=== PATIENT | female | born 1985 | race Asian ===

== ENCOUNTER 2016-08-31 10:58 | Emergency (ER) | payer SELFPAY ==
[~2016-08-31] VITALS: Ht 165.1 cm; Wt 99.8 kg
[2016-08-31 11:25] VITALS: BP 153/82
--- NOTE | 2016-08-31 12:03 | RAD ---
Indication: Cough. Time of exam 11:51 AM No prior studies are available for comparison. FINDINGS: The heart size is normal. The lungs are clear. No pleural effusion or pneumothorax is identified. The pulmonary vascularity is normal. IMPRESSION: No acute abnormality detected.
[2016-08-31] MEDS ORDERED: SUMAtriptan SUCCINATE 25 MG TABLET PO ONE (12:15)
[2016-08-31 12:48] LABS: BILIRUBIN,URINE NEGATIVE (NEG); GLUCOSE,URINE NEGATIVE (NEG); NITRITE,URINE NEGATIVE (NEG); PROTEIN,URINE NEGATIVE (NEG-TRACE); UROBILINOGEN,URINE 0.2 mg/dL (0.2 mg/dL)
[2016-08-31 12:57] LABS: BACTERIA,URINE 0 /HPF (0-FEW); SQUAMOUS EPITHELIAL CELL,UR MOD /LPF; WBC,URINE 0 /HPF (0-4)
[2016-08-31] MEDS ORDERED: PROAIR RESPICL90 MCG IH (13:33)
[2016-08-31] MEDS ORDERED: BENZ100C PO (13:33)
[2016-08-31] MEDS ORDERED: SUMA50TA3 PO (13:33)
[2016-08-31] MEDS ORDERED: CYCL10TA2 PO (13:33)
[2016-08-31] MEDS ORDERED: PRED50TA PO (13:33)
[2016-08-31] MEDS ORDERED: NAPR500T8 PO (13:33)
--- NOTE | 2016-08-31 13:33 | PHYS DOC ---
Past Medical History Past Medical History: Hypertension Past Surgical History: No Surgical History Alcohol Use: None Drug Use: None Adult General Chief Complaint Chief Complaint: COUGH HPI HPI Patient is a 30 year old female with history of hypertension who presents today with a productive cough for 2 weeks. Patient denies any fever. Patient is also complaining of intermittent low back pain and mild frontal headache that began yesterday. Patient denies this being the worst headache in her life. Denies any trauma. Denies any urgency frequency or dysuria. Denies any chance she is . Denies any pain radiating to bilateral lower extremities or loss of bowel bladder function. Review of Systems Review of Systems Constitutional: Denies fever or chills [] Eyes: Denies change in visual acuity, redness, or eye pain [] HENT: Denies nasal congestion or sore throat [] Respiratory: cough Cardiovascular: No additional information not addressed in HPI [] GI: Denies abdominal pain, nausea, vomiting, bloody stools or diarrhea [] : See history of present illness Musculoskeletal: back pain Integument: Denies rash or skin lesions [] Neurologic: headache, Endocrine: Denies polyuria or polydipsia [] Current Medications Current Medications Current Medications Medications (Trade) Dose Ordered Sig/Biran Start Time Stop Time Status Last Admin Dose Admin Sumatriptan Succinate (Imitrex) 25 mg 1X ONCE 08/31/16 12:15 08/31/16 12:16 DC 08/31/16 12:12 25 MG Allergies Allergies Allergies Coded Allergies Type Severity Reaction Last Updated Verified No Known Drug Allergies 11/03/15 No Physical Exam Physical Exam Constitutional: Well developed, well nourished, no acute distress, non-toxic appearance. [] HENT: Normocephalic, atraumatic, bilateral external ears normal, oropharynx moist, no oral exudates, nose normal. [] Eyes: PERRLA, EOMI, conjunctiva normal, no discharge. [] Neck: Normal range of motion, no tenderness, supple, no stridor. [] Cardiovascular:Heart rate regular rhythm, no murmur [] Lungs & Thorax: Bilateral breath sounds clear to auscultation [] Abdomen: Bowel sounds normal, soft, no tenderness, no masses, no pulsatile masses. [] Skin: Warm, dry, no erythema, no rash. [] Back: No tenderness, no CVA tenderness. [] Extremities: No tenderness, no cyanosis, no clubbing, ROM intact, no edema. [] Neurologic: Alert and oriented X 3, normal motor function, normal sensory function, no focal deficits noted. [] Psychologic: Affect normal, judgement normal, mood normal. [] Current Patient Data Vital Signs Vital Signs Date Time Temp Pulse Resp B/P (MAP) Pulse Ox O2 Delivery O2 Flow Rate FiO2 08/31/16 11:25 97.7 67 20 97 Room Air 97.7 Lab Values Laboratory Tests Test 08/31/16 11:18 08/31/16 11:45 POC Urine HCG, Qualitative Hcg negative (Negative) Urine Collection Type Unknown Urine Color Yellow Urine Clarity Clear Urine pH 6.0 Urine Specific Humphrey 1.020 Urine Protein Negative mg/dL (NEG-TRACE) Urine Glucose (UA) Negative mg/dL (NEG) Urine Ketones (Stick) Negative mg/dL (NEG) Urine Blood Moderate (NEG) Urine Nitrite Negative (NEG) Urine Bilirubin Negative (NEG) Urine Urobilinogen Dipstick 0.2 mg/dL (0.2 mg/dL) Urine Leukocyte Esterase Negative (NEG) Urine RBC 3-5 /HPF (0-2) Urine WBC 0 /HPF (0-4) Urine Squamous Epithelial Cells Mod /LPF Urine Bacteria 0 /HPF (0-FEW) Urine Mucus Marked /LPF EKG EKG [] Radiology/Procedures Radiology/Procedures [] Course & Med Decision Making Course & Med Decision Making Pertinent Labs and Imaging studies reviewed. (See chart for details) Patient is in the ED with complaints for cough for 2 weeks low back pain and a headache that is suspicious for migraine. She was given Imitrex in the ED which relieved the headache. She'll be discharged with Imitrex. Chest x-ray interpreted by radiologist is negative for any acute findings. Urine analysis is negative for infection. The cough is probably viral bronchitis. He was put on prednisone. ALBUTEROL INHALER. RECOMMENDED IBUPROFEN AND FLEXERIL FOR BACK PAIN. FOLLOW-UP WITH PCP IN ONE WEEK. Dragon Disclaimer Dragon Disclaimer This electronic medical record was generated, in whole or in part, using a voice recognition dictation system. Departure Departure Impression: Primary Impression: Acute bronchitis Additional Impressions: Migraine headache Low back pain Disposition: 01 HOME, SELF-CARE Condition: STABLE Referrals: NO PCP (PCP) Follow-up with your doctor in 1-2 weeks. Patient Instructions: Acute Bronchitis, [id number], Back Pain, Adult, Migraine Headache Additional Instructions: You were seen for headache which was suspicious for migraine, low back pain and a cough suspicious for viral bronchitis. Take the prescribed medicines as ordered. Follow-up with your doctor in 1-2 weeks. Come back to the ED if symptoms worsen Scripts Albuterol Sulfate (Proair Respiclick) 90 Mcg Aer.pow.ba 1 PUFF IH PRN Q6HRS Y for SHORTNESS OF BREATH, #1 INHALER Prov: PERLITA LANE APRN 08/31/16 Sumatriptan Succinate (IMITREX) 50 Mg Tablet 1 TAB PO UD, #9 TAB Prov: PERLITA LANE APRN 08/31/16 Benzonatate (TESSALON PERLE) 100 Mg Capsule 1 CAP PO TID, #30 CAP Prov: PERLITA LANE APRN 08/31/16 Prednisone (PREDNISONE) 50 Mg Tablet 1 TAB PO DAILY, #5 TAB Prov: PERLITA LANE APRN 08/31/16 Naproxen (NAPROXEN) 500 Mg Tablet.dr 1 TAB PO BID, #60 TAB 1 Refill Prov: PERLITA LANE APRN 08/31/16 Cyclobenzaprine Hcl (CYCLOBENZAPRINE HCL) 10 Mg Tablet 1 TAB PO TID, #30 TAB Prov: PERLITA LANE APRN 08/31/16 Problem Qualifiers Primary Impression: Acute bronchitis Bronchitis organism: unspecified organism Qualified Codes: J20.9 - Acute bronchitis, unspecified Additional Impressions: Migraine headache Migraine type: without aura Status migrainosus presence: without status migrainosus Intractability: not intractable Qualified Codes: G43.009 - Migraine without aura, not intractable, without status migrainosus Low back pain Chronicity: acute Back pain laterality: bilateral Sciatica presence: without sciatica Qualified Codes: M54.5 - Low back pain PERLITA LANE APRN Aug 31, 2016 13:33
== END 2016-08-31 13:35 | disposition home or self-care (01) ==
LOC: ER 10:58
DX: J20.9 Acute bronchitis, unspecified (principal); I10 Essential (primary) hypertension; G43.909 Migraine, unspecified, not intractable, without status migrainosus; M54.5 Low back pain
CPT/HCPCS: 71020; 81001; 81025; 99285-25

== ENCOUNTER 2017-04-08 10:13 | Emergency (ER) | payer OTHER | END 2017-04-08 11:43 | disposition home or self-care (01) | LOC: ER 10:13 | DX: L03.011 Cellulitis of right finger (principal); I10 Essential (primary) hypertension | CPT/HCPCS: 10060; 26010; 99283-25 ==

== ENCOUNTER 2018-03-12 09:22 | Emergency (ER) | payer BC, OTHER ==
[~2018-03-12] VITALS: Ht 162.6 cm; Wt 111.1 kg
[~2018-03-12 09:22] MED LIST: BENZ100C PO; CEPH500C PO; CYCL10TA2 PO; NAPR500T8 PO; PRED50TA PO; PROAIR RESPICL90 MCG IH; SUMA50TA3 PO
[2018-03-12 09:30] VITALS: BP 139/91
[2018-03-12] MEDS ORDERED: NAPROXEN 500 MG TABLET PO STA (09:46)
--- NOTE | 2018-03-12 10:53 | RAD ---
Indication:RT ANKLE PAIN X 2 DAYS, NO KNOWN INJURY TECHNIQUE: 3 views of the right ankle COMPARISON:None FINDINGS/ impression: No acute fracture or dislocation. Ankle mortise is intact. Moderate ankle swelling. Electronically signed by: Bryan Kaba DO (03/12/2018 10:49 AM) [facility]
[2018-03-12] MEDS ORDERED: NAPR-514 PO (11:27)
--- NOTE | 2018-03-12 11:27 | PHYS DOC ---
Past Medical History Past Medical History: Hypertension Past Surgical History: No Surgical History Alcohol Use: None Drug Use: None Adult General Chief Complaint Chief Complaint: ANKLE PROBLEM HPI HPI Patient is a 32 year old female who presents to the ER with complaints of lateral right ankle pain for the last 2 days. Patient denies any known injury, she states that she works and stands for long periods of times while she is working. He reports that the pain increases with weightbearing and movement. She denies any numbness, tingling, or weakness of the affected extremity. Review of Systems Review of Systems Constitutional: Denies fever or chills [] Musculoskeletal: See history of present illness Integument: Denies rash or skin lesions [] Neurologic: Denies focal weakness or sensory changes [] All other systems were reviewed and found to be within normal limits, except as documented in this note. Current Medications Current Medications Current Medications Medications (Trade) Dose Ordered Sig/Brian Start Time Stop Time Status Last Admin Dose Admin Naproxen (Naprosyn) 500 mg 1X STAT 03/12/18 09:46 03/12/18 09:49 DC 03/12/18 10:05 500 MG Allergies Allergies Allergies Coded Allergies Type Severity Reaction Last Updated Verified No Known Drug Allergies 11/03/15 No Physical Exam Physical Exam Constitutional: Well developed, well nourished, no acute distress, non-toxic appearance, obese. [] HENT: Normocephalic, atraumatic, bilateral external ears normal, nose normal. [] Eyes: conjunctiva normal, no discharge. [] Neck: Normal range of motion Skin: Warm, dry, no erythema, no rash. [] Extremities: Right lateral ankle tenderness, no cyanosis, no clubbing, ROM intact, 1+ edema to right lateral ankle no deformity of right lower extremity Neurologic: Alert and oriented X 3, normal motor function, normal sensory function, no focal deficits noted. [] Psychologic: Affect normal, judgement normal, mood normal. [] Current Patient Data Vital Signs Vital Signs Date Time Temp Pulse Resp B/P (MAP) Pulse Ox O2 Delivery O2 Flow Rate FiO2 03/12/18 09:30 97.9 72 20 139/91 (107) 99 Room Air 97.9 EKG EKG [] Radiology/Procedures Radiology/Procedures PROCEDURE: ANKLE RIGHT 3V Indication:RT ANKLE PAIN X 2 DAYS, NO KNOWN INJURY TECHNIQUE: 3 views of the right ankle COMPARISON:None FINDINGS/ impression: No acute fracture or dislocation. Ankle mortise is intact. Moderate ankle swelling.[] Course & Med Decision Making Course & Med Decision Making Pertinent Labs and Imaging studies reviewed. (See chart for details) dx: Right ankle sprain, right ankle pain X-ray of right lower extremity was negative for any acute findings or dislocation. Patient was placed in an ankle air splint and crutches were provided. Patient was given one 500 mg naproxen while in the department. Prescription for naproxen was written. Patient was advised to follow-up with Dr. Fuentes if symptoms persisted. Patient verbalized an understanding of home care, medications, follow-up, and return to ED instructions and was in agreement with the plan of care.] Staff Physician Addendum: I was working in the ER during the course of this patient's visit. I was available for consultation as needed, but I was not directly involved in the care of this patient. Dragon Disclaimer Dragon Disclaimer This electronic medical record was generated, in whole or in part, using a voice recognition dictation system. Departure Departure Impression: Primary Impression: Right ankle sprain Additional Impression: Right ankle pain Disposition: HOME, SELF-CARE Condition: STABLE Referrals: NO PCP (PCP) JOSE FUENTES MD Patient Instructions: Ankle Sprain, [id number] Additional Instructions: Fill prescription(s) and use as directed. Recommend application of ice, elevation, and rest of affected extremity. Wear the splint that was placed until follow up appointment with Dr. Fuentes or your primary care doctor. Return to the ER if your symptoms worsen. Scripts Naproxen (NAPROXEN) 500 Mg Tablet 1 TAB PO BID PRN for PAIN for 10 Days, #20 TAB 0 Refills Prov: MARSHALL MIXON [employer] 03/12/18 Problem Qualifiers Primary Impression: Right ankle sprain Encounter type: initial encounter Involved ligament of ankle: unspecified ligament Qualified Codes: S93.401A - Sprain of unspecified ligament of right ankle, initial encounter Additional Impression: Right ankle pain Chronicity: acute Qualified Codes: M25.571 - Pain in right ankle and joints of right foot MARSHALL MIXON APRN Mar 12, 2018 11:27 JAIDA BALDWIN MD Mar 14, 2018 08:06
== END 2018-03-12 11:30 | disposition home or self-care (01) ==
LOC: ER 09:22
DX: S93.491A Sprain of other ligament of right ankle, initial encounter (principal); I10 Essential (primary) hypertension; X58.XXXA Exposure to other specified factors, initial encounter; Y93.89 Activity, other specified; Y92.89 Other specified places as the place of occurrence of the external cause; Y99.0 Civilian activity done for income or pay
CPT/HCPCS: 29515; 73610; 99283